=== PATIENT | female | born 1985 | race Caucasian/White ===

== ENCOUNTER 2020-01-24 10:27 | Outpatient (REF) | payer OTHER, SELFPAY | END 2020-01-24 10:28 | disposition home or self-care (01) | LOC: HO.LAB 10:27 | PROVIDERS: Visit Provider Internal Medicine | DX: Z20.828 Contact with and (suspected) exposure to other viral communicable diseases (principal) | CPT/HCPCS: 87635 ==

== ENCOUNTER 2020-03-18 08:53 | Outpatient (REF) | payer OTHER, SELFPAY | END 2020-03-18 08:54 | disposition home or self-care (01) | LOC: HO.WFDLDS 08:53 | PROVIDERS: Visit Provider Internal Medicine | DX: Z20.828 Contact with and (suspected) exposure to other viral communicable diseases (principal) | CPT/HCPCS: C9803; U0003 ==